=== PATIENT | male | born 1980 | race American Indian/Alaskan Native ===

== ENCOUNTER 2016-11-23 12:42 | Emergency (ER) | payer SELFPAY ==
[2016-11-23 13:09] VITALS: BP 136/93
== END 2016-11-23 14:35 | disposition left against medical advice (07) ==
LOC: ED 12:42
DX: S69.92XA Unspecified injury of left wrist, hand and finger(s), initial encounter (principal); X58.XXXA Exposure to other specified factors, initial encounter; Y93.9 Activity, unspecified; Y92.89 Other specified places as the place of occurrence of the external cause; Y99.9 Unspecified external cause status; Z53.21 Procedure and treatment not carried out due to patient leaving prior to being seen by health care provider

== ENCOUNTER 2017-02-15 12:17 | Emergency (ER) | payer OTHER ==
[2017-02-15 12:26] VITALS: BP 149/77
[2017-02-15] MEDS ORDERED: XYLOCAINE 2% INFILTRATI ONE (15:26)
--- NOTE | 2017-02-15 15:27 | Emergency Department Report ---
ED Recheck HPI - General Chief Complaint: Extremity Injury, Upper Stated Complaint: R THUMB PAIN/SWELLING Time Seen by Provider: 02/15/17 15:25 Source: patient Mode of arrival: Ambulatory Limitations: No Limitations - History of Present Illness Initial Comments: 36-year-old male with past medical history none presents with complaint of pain and swelling to right is still some lateral nail edge bed. Patient has visible small abscess at lateral nail edge. Patient states symptoms have been ongoing for 2-3 days. Denies any open pus drainage. Denies any direct trauma to fingertip. Denies any pain and finger pad pain and swelling is only at lateral edge of nail bed. MD Complaint: other Onset/Timin -: days(s) Initial Visit For: abscess (right distal thumb paronychia) Associated Symptoms: none - Related Data Previous Rx's Medication Instructions Recorded Last Taken Type Ibuprofen [Motrin] 600 mg PO Q8H PRN #20 tablet 02/15/17 Unknown Rx Neomycn/Baci Zn/Pmyx Bs/Pramox 28 gm TP BID #1 oint...g. 02/15/17 Unknown Rx [Triple Antibioti-Pain Rlf Oint] Sulfamethoxazole/Trimethoprim 1 each PO BID #14 tablet 02/15/17 Unknown Rx [Bactrim DS TAB] Allergies Allergy/AdvReac Type Severity Reaction Status Date / Time No Known Allergies Allergy Verified 02/15/17 12:22 ED Review of Systems ROS: Stated complaint: R THUMB PAIN/SWELLING Other details as noted in HPI Constitutional: denies: chills, fever Eyes: denies: eye pain, eye discharge, vision change ENT: denies: ear pain, throat pain Respiratory: denies: cough, shortness of breath, wheezing Cardiovascular: denies: chest pain, palpitations Endocrine: no symptoms reported Gastrointestinal: denies: abdominal pain, nausea, diarrhea Genitourinary: denies: urgency, dysuria Musculoskeletal: denies: back pain, joint swelling, arthralgia Skin: denies: rash, lesions Neurological: denies: headache, weakness, paresthesias Psychiatric: denies: anxiety, depression Hematological/Lymphatic: denies: easy bleeding, easy bruising ED Past Medical Hx - Past Medical History Hx Asthma: Yes - Surgical History Additional Surgical History: LEFT ROTATOR CUFF REPAIR - Social History Smoking Status: Never Smoker Substance Use Type: None - Medications Home Medications: Home Medications Medication Instructions Recorded Confirmed Last Taken Type Ibuprofen [Motrin] 600 mg PO Q8H PRN #20 tablet 02/15/17 Unknown Rx Neomycn/Baci Zn/Pmyx Bs/Pramox 28 gm TP BID #1 oint...g. 02/15/17 Unknown Rx [Triple Antibioti-Pain Rlf Oint] Sulfamethoxazole/Trimethoprim 1 each PO BID #14 tablet 02/15/17 Unknown Rx [Bactrim DS TAB] ED Physical Exam - General Limitations: No Limitations General appearance: alert, in no apparent distress - Head Head exam: Present: atraumatic, normocephalic - Eye Eye exam: Present: normal appearance, PERRL, EOMI - ENT ENT exam: Present: mucous membranes moist - Neck Neck exam: Present: normal inspection - Respiratory Respiratory exam: Present: normal lung sounds bilaterally. Absent: respiratory distress - Cardiovascular Cardiovascular Exam: Present: regular rate, normal rhythm. Absent: systolic murmur, diastolic murmur, rubs, gallop - GI/Abdominal GI/Abdominal exam: Present: soft, normal bowel sounds - Rectal Rectal exam: Present: deferred - Extremities Exam Extremities exam: Present: normal inspection - Expanded Upper Extremity Exam Right Shoulder Exam: Present: normal inspection, full ROM Upper Arm exam: Present: normal inspection, full ROM Elbow exam: Present: normal inspection, full ROM Forearm Wrist exam: Present: normal inspection, full ROM Hand Wrist exam: Present: swelling (paronchyia right distal medial thumb nail edge) Neuro motor exam: Present: wrist extension intact, thumb opposition intact, thumb IP flexion intact, thumb adduction intact, fingers 2-5 abduction intact Vascular: Present: normal capillary refill - Back Exam Back exam: Present: normal inspection - Neurological Exam Neurological exam: Present: alert, oriented X3 - Psychiatric Psychiatric exam: Present: normal affect, normal mood - Skin Skin exam: Present: warm, dry, intact, normal color. Absent: rash ED Course Vital Signs 02/15/17 12:23 Temperature 98.2 F Pulse Rate 72 Respiratory 17 Rate Blood Pressure 149/77 O2 Sat by Pulse 98 Oximetry - I & D Right Distal Finger Type of Procedure: Simple Site: right distal thumb nail edge pain Blade Size: 11 I & D Procedure: betadine prep Progress: small abscess incised and drained right thumbnail lateral nail edge, about 1cc of purulent drainage, procedure tolerated well, minimal bleeding. ED Recheck MDM - Medical Decision Making A/P: Paronychia right distal thumb nail 1-paronychia incised and drained, significant relief of swelling and decompression of abscess site. 2-Bactrim twice a day 7 days. motrin prn 3-advised patient to return if symptoms worsen or if distal tuft of finger tip becomes involved. No clinical signs of a felon at this time. Distal capillary refill and sensation fully intact. 4-distal thumb wrapped with gauze and patient given finger splint. Critical care attestation.: If time is entered above; I have spent that time in minutes in the direct care of this critically ill patient, excluding procedure time. ED Disposition Clinical Impression: Paronychia of finger of right hand Disposition: DISCHARGED TO HOME OR SELFCARE Is pt being admited?: No Does the pt Need Aspirin: No Condition: Stable Instructions: Paronychia (ED), Acute Wound Care (ED), Incision and Drainage (ED ) Prescriptions: Ibuprofen [Motrin] 600 mg PO Q8H PRN #20 tablet PRN Reason: Pain Neomycn/Baci Zn/Pmyx Bs/Pramox [Triple Antibioti-Pain Rlf Oint] 28 gm TP BID #1 oint...g. Sulfamethoxazole/Trimethoprim [Bactrim DS TAB] 1 each PO BID #14 tablet Referrals: PRIMARY CARE, [Primary Care Provider] - 3-5 Days Forms: Work/School Release Form(ED) Time of Disposition: 00:22
[2017-02-15] MEDS ORDERED: MOTRIN PO ONE (16:04)
== END 2017-02-15 16:08 | disposition home or self-care (01) ==
LOC: ED 12:17
DX: L03.011 Cellulitis of right finger (principal); J45.909 Unspecified asthma, uncomplicated

== ENCOUNTER 2017-03-19 08:20 | Emergency (ER) | payer SELFPAY ==
[2017-03-19 08:58] VITALS: BP 148/96
--- NOTE | 2017-03-19 09:29 | Emergency Department Report ---
ED Eye Problem HPI - General Chief complaint: Eye Problems Stated complaint: PINK EYE Time Seen by Provider: 03/19/17 09:09 Source: patient Mode of arrival: Ambulatory Limitations: No Limitations - History of Present Illness Initial comments: Patient comes in the ER today with complaint of right eye redness that he noticed yesterday. Patient states that he does wear contacts and not sure if maybe he scratched his eye. Patient does state that his eyeball seemed puffy to him and that it has been draining discharge since yesterday. Patient denies any visual changes and states that he did take out his contacts. chief complaint: eye redness - Related Data Previous Rx's Medication Instructions Recorded Last Taken Type Ibuprofen [Motrin] 600 mg PO Q8H PRN #20 tablet 02/15/17 Unknown Rx Neomycn/Baci Zn/Pmyx Bs/Pramox 28 gm TP BID #1 oint...g. 02/15/17 Unknown Rx [Triple Antibioti-Pain Rlf Oint] Sulfamethoxazole/Trimethoprim 1 each PO BID #14 tablet 02/15/17 Unknown Rx [Bactrim DS TAB] Polymyxin B Sulf/Trimethoprim 2 drop OP TID 5 Days 03/19/17 Unknown Rx [Polytrim Eye Drops [id number]/0.1%] Allergies Allergy/AdvReac Type Severity Reaction Status Date / Time No Known Allergies Allergy Verified 02/15/17 12:22 ED Review of Systems ROS: Stated complaint: PINK EYE Other details as noted in HPI Constitutional: denies: chills, fever Eyes: eye pain, eye discharge. denies: vision change ENT: denies: ear pain, throat pain, congestion Respiratory: denies: cough, shortness of breath, wheezing Cardiovascular: denies: chest pain, palpitations Endocrine: no symptoms reported Gastrointestinal: denies: abdominal pain, nausea, diarrhea Genitourinary: denies: urgency, dysuria Musculoskeletal: denies: back pain, joint swelling, arthralgia Skin: denies: rash, lesions Neurological: denies: headache, weakness, paresthesias Psychiatric: denies: anxiety, depression Hematological/Lymphatic: denies: easy bleeding, easy bruising ED Past Medical Hx - Past Medical History Previous Medical History?: Yes Hx Asthma: Yes - Surgical History Past Surgical History?: Yes Additional Surgical History: LEFT ROTATOR CUFF REPAIR - Social History Smoking Status: Never Smoker Substance Use Type: None - Medications Home Medications: Home Medications Medication Instructions Recorded Confirmed Last Taken Type Ibuprofen [Motrin] 600 mg PO Q8H PRN #20 tablet 02/15/17 Unknown Rx Neomycn/Baci Zn/Pmyx Bs/Pramox 28 gm TP BID #1 oint...g. 02/15/17 Unknown Rx [Triple Antibioti-Pain Rlf Oint] Sulfamethoxazole/Trimethoprim 1 each PO BID #14 tablet 02/15/17 Unknown Rx [Bactrim DS TAB] Polymyxin B Sulf/Trimethoprim 2 drop OP TID 5 Days 03/19/17 Unknown Rx [Polytrim Eye Drops [id number]/0.1%] ED Physical Exam - General Limitations: No Limitations General appearance: alert, in no apparent distress - Head Head exam: Present: atraumatic, normocephalic - Eye Eye exam: Present: PERRL, EOMI. Absent: normal appearance (right bilateral eye redness, swelling with corneal abrasion noted lateral to the iris), periorbital swelling, periorbital tenderness Pupils: Present: normal accommodation - ENT ENT exam: Present: normal exam, normal orophraynx, mucous membranes moist, TM's normal bilaterally, normal external ear exam - Neck Neck exam: Present: normal inspection, full ROM. Absent: tenderness, lymphadenopathy - Respiratory Respiratory exam: Present: normal lung sounds bilaterally. Absent: respiratory distress - Cardiovascular Cardiovascular Exam: Present: regular rate, normal rhythm. Absent: systolic murmur, diastolic murmur, rubs, gallop - GI/Abdominal GI/Abdominal exam: Present: soft, normal bowel sounds - Rectal Rectal exam: Present: deferred - Extremities Exam Extremities exam: Present: normal inspection - Back Exam Back exam: Present: normal inspection - Neurological Exam Neurological exam: Present: alert, oriented X3 - Psychiatric Psychiatric exam: Present: normal affect, normal mood - Skin Skin exam: Present: warm, dry, intact, normal color. Absent: rash ED Course Vital Signs 03/19/17 03/19/17 08:23 08:57 Temperature 97.6 F 97.9 F Pulse Rate 71 73 Respiratory 16 18 Rate Blood Pressure 130/82 Blood Pressure 148/96 [Left] O2 Sat by Pulse 100 97 Oximetry ED Medical Decision Making - Medical Decision Making Patient is nontoxic and hemodynamically stable. Patient does have corneal abrasion noted on examination. I reassured patient on healing time for subconjunctival hemorrhage. I will start patient on some antibiotic drops accordingly and refer patient to eye doctor for further evaluation. Patient is in agreement with treatment plan patient is stable for discharge. Critical care attestation.: If time is entered above; I have spent that time in minutes in the direct care of this critically ill patient, excluding procedure time. ED Disposition Clinical Impression: Conjunctivitis, Subconjunctival hemorrhage of right eye, Corneal abrasion, right Disposition: DC- TO HOME OR SELFCARE Is pt being admited?: No Does the pt Need Aspirin: No Condition: Good Instructions: Conjunctivitis (ED), Corneal Abrasion (ED), Subconjunctival Hemorrhage (ED) Prescriptions: Polymyxin B Sulf/Trimethoprim [Polytrim Eye Drops [id number]/0.1%] 2 drop OP TID 5 Days Referrals: PRIMARY CARE, [Primary Care Provider] - 3-5 Days [facility] [place] [Provider Group] - 3-5 Days Forms: Work/School Release Form(ED) Time of Disposition: 09:32
== END 2017-03-19 10:14 | disposition home or self-care (01) ==
LOC: ED 08:20
DX: S05.01XA Injury of conjunctiva and corneal abrasion without foreign body, right eye, initial encounter (principal); H11.31 Conjunctival hemorrhage, right eye; H10.9 Unspecified conjunctivitis; J45.909 Unspecified asthma, uncomplicated; X58.XXXA Exposure to other specified factors, initial encounter; Y93.89 Activity, other specified; Y99.8 Other external cause status; Y92.89 Other specified places as the place of occurrence of the external cause
CPT/HCPCS: 99282